=== PATIENT | male | born 1985 | race Caucasian/White ===

== ENCOUNTER 2023-02-03 09:30 | Emergency (ER) | payer BC, SELFPAY ==
[2023-02-03 09:37] VITALS: BP 124/68; PULSE 74; RESP 18; TEMP 36.5; O2SAT 100
--- NOTE | 2023-02-03 10:28 | ED.GENADULT ---
HPI - General Adult General Chief complaint: Ear Stated complaint: Rt Ear Irritation Time Seen by Provider: 02/03/23 10:20 Source: patient Mode of arrival: ambulatory Limitations: no limitations History of Present Illness HPI narrative: 37-year-old male presented for complaint of sore in the right nostril for about 10 days, with yellow/green drainage. States the sore is in the inside of the right nostril tip. Denies epistaxis. Also reports right ear pain worsening over the past 4 days. He endorses chronic tinnitus but for about 4-5 days the ringing is worse. Not taking anything for symptoms. Denies dizziness, n/v/d/f/c. Related Data Allergies Allergy/AdvReac Type Severity Reaction Status Date / Time sulfamethizole AdvReac Mild Rash Verified 02/03/23 10:22 sulfamethoxazole AdvReac Mild Rash Verified 02/03/23 10:22 trimethoprim AdvReac Mild Rash Verified 02/03/23 10:22 Review of Systems Review of Systems: CONSTITUTIONAL: Denies malaise, chills, or fever. EYES: Denies visual changes, redness, or discharge. ENT: Denies rhinorrhea, congestion, sinus pain, and sore throat. Reports ear pain, nose sore CARDIOVASCULAR: Denies chest pain, palpitations, or edema. RESPIRATORY: Denies cough or dyspnea. GASTROINTESTINAL: Denies abdominal pain, nausea, vomiting, diarrhea SKIN: Denies rash or itching. MUSCULOSKELETAL: Denies myalgia. NEUROLOGIC: Denies headache. All systems reviewed & are unremarkable except as noted in HPI and below PMFSH Past Medical History Medical History (Updated 02/03/23 @ 10:33 by Molly Correia APRN) Elevated cholesterol Family History Family History Mother Multiple sclerosis Grandparent Heart disease Other Diabetes mellitus Hypertension Social History Social History Smoking status: Never smoker Tobacco type: smokeless tobacco Smokeless tobacco user: chewing tobacco Alcohol intake: current Alcohol use details: Very rare Substance use: current Substance use type: marijuana Living arrangements: with family Occupation/Education: occupation 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 There is no relevant family history pertinent to the presenting complaint Exam Narrative: GENERAL: Well-appearing, well-nourished, and in no acute distress. HEAD: Normocephalic EYES: PERRLA, conjunctivae clear ENT: Right distal Nare with dried yellow/serous crust, tender. Mucous membranes moist. TMs pearly miller with dull light reflex bilaterally, right TM with minimal effusion; no tragal tenderness. Oropharynx not erythematous without lesions. NECK: Supple. No lymphadenopathy CHEST: Clear to auscultation, breath sounds equal. No wheezing, rhonchi, rales, or stridor. No respiratory distress, speaks in full sentences. HEART: Regular rate and rhythm. No murmur heard. SKIN: Warm, dry, no rash. NEURO: Alert and oriented x3. PSYCH: Normal mood and affect Course Course Emergency Course: Patient is aware of diagnosis, understands and agrees to treatment plan. Anticipatory guidance given. Patient agrees to follow-up as directed and is aware of reasons to seek care at the emergency department. Portions of this record may have been created with voice recognition software Level of Care: Express Care Visit Vital Signs Vital signs: Vital Signs Temperature 97.7 F 02/03/23 09:37 Pulse Rate 74 02/03/23 09:37 Respiratory Rate 18 02/03/23 09:37 Blood Pressure 124/68 02/03/23 09:37 Pulse Oximetry 100 02/03/23 09:37 Oxygen Delivery Room Air 02/03/23 09:37 Temperature 97.7 F 02/03/23 09:37 Pulse Rate 74 02/03/23 09:37 Respiratory Rate 18 02/03/23 09:37 Blood Pressure 124/68 02/03/23 09:37 P
== END 2023-02-03 10:32 | disposition home or self-care (01) ==
PROVIDERS: Emergency Provider Nurse Practitioner Family; PCP Nurse Practitioner Family
DX: H92.01 Otalgia, right ear (principal); L73.9 Follicular disorder, unspecified; F12.90 Cannabis use, unspecified, uncomplicated; E78.00 Pure hypercholesterolemia, unspecified; F17.220 Nicotine dependence, chewing tobacco, uncomplicated
CPT/HCPCS: 99213; G0463

== ENCOUNTER 2023-06-28 08:24 | Emergency (ER) | payer BC, SELFPAY ==
[2023-06-28 08:32] VITALS: BP 123/65; PULSE 76; RESP 18; TEMP 37.1; O2SAT 98
--- NOTE | 2023-06-28 08:44 | ED.URI ---
HPI - URI/Sore Throat General Chief Complaint: Upper Respiratory Infection Stated Complaint: Congestion,Nausea,Body Aches,Sore Throat Time Seen by Provider: 06/28/23 08:37 Source: patient and RN notes reviewed Mode of arrival: ambulatory Limitations: no limitations History of Present Illness HPI Narrative: Patient presents today complaining of 3 day history of sore throat, congestion, headache, body aches, fever up to 101.1, and mild cough. Currently rates his pain 4/10 and has been taking DayQuil with mild relief. 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 Related Data Home Medications Medication Instructions Recorded Confirmed testosterone 50 mg/mL 50 mg IM WEEKLY 02/03/23 02/03/23 intramuscular solution Allergies Allergy/AdvReac Type Severity Reaction Status Date / Time sulfamethizole AdvReac Mild Rash Verified 02/03/23 10:22 sulfamethoxazole AdvReac Mild Rash Verified 02/03/23 10:22 trimethoprim AdvReac Mild Rash Verified 02/03/23 10:22 Review of Systems Review of Systems: CONSTITUTIONAL: + body aches, fever EYES: Denies visual changes, redness, or discharge. ENT: Denies rhinorrhea, or otalgia.+ sore throat, congestion CARDIOVASCULAR: Denies chest pain, palpitations, or edema. RESPIRATORY: + cough GASTROINTESTINAL: Denies abdominal pain, nausea, vomiting, or diarrhea. GENITOURINARY: Denies dysuria or hematuria. SKIN: Denies rash, itching, or wounds. MUSCULOSKELETAL: Denies back pain, joint pain, or myalgia. NEUROLOGIC: Denies numbness, tingling, or weakness.+ headache PSYCH: Denies depression or anxiety. 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 Please see nursing chart for further information. There is no relevant family history pertinent to the presenting complaint Exam Narrative: GENERAL: Mildly ill-appearing, well-nourished, and in no acute distress. HEAD: Normocephalic, atraumatic. EYES: EOMI. No redness or drainage. Conjunctivae normal. ENT: Mucous membranes pink and moist. Nares congested. No rhinorrhea. TMs normal bilaterally. Throat mildly erythematous without edema or exudate. Uvula midline. NECK: Normal AROM. Supple. No lymphadenopathy. CHEST: No respiratory distress. Clear to auscultation. HEART: Regular rate and rhythm. No murmur appreciated. EXTREMITIES: Normal range of motion. No edema. SKIN: Warm, dry, no rash. Capillary refill normal. Normal skin turgor. NEURO: No focal deficits. Alert and oriented x3. Gait steady. PSYCH: Normal affect. No signs of depression or anxiety. Course Course Level of Care: Express Care Visit Vital Signs Vital signs: Vital Signs Oxygen Delivery Room Air 06/28/23 08:30 Temperature 98.7 F 06/28/23 08:32 Pulse Rate 76 06/28/23 08:32 Respiratory Rate 18 06/28/23 08:32 Blood Pressure 123/65 06/28/23 08:32 Pulse Oximetry 98 06/28/23 08:32 Oxygen Delivery Room Air 06/28/23 08:32 Reviewed MDM - URI/Sore Throat MDM Narrative Medical decision making narrative: Rapid strep negative.
== END 2023-06-28 08:53 | disposition home or self-care (01) ==
PROVIDERS: Emergency Provider Nurse Practitioner; PCP Nurse Practitioner Family
DX: J06.9 Acute upper respiratory infection, unspecified (principal); F17.220 Nicotine dependence, chewing tobacco, uncomplicated; F12.90 Cannabis use, unspecified, uncomplicated; E78.00 Pure hypercholesterolemia, unspecified
CPT/HCPCS: 87081; 87880; 99213; G0463

== ENCOUNTER 2024-03-03 09:26 | Emergency (ER) | payer BC, SELFPAY ==
--- NOTE | 2024-03-03 09:33 | ED.URI ---
HPI - URI/Sore Throat General Chief Complaint: Upper Respiratory Infection Stated Complaint: sinus infection Source: patient, RN notes reviewed and old records reviewed Mode of arrival: ambulatory Limitations: no limitations History of Present Illness HPI Narrative: patient presents with complaints of right-sided sinus pain and pressure that has been present for 7 or 8 days. He reports associated headache. He has been taking Mucinex and other Over the counter medications with minimal relief. he denies fever. He does report some associated fatigue and headache. He denies injury or trauma. Heart rate of 55 noted, patient reports this is normal for him. He voices no other concerns or complaints at this time Related Data Home Medications Medication Instructions Recorded Confirmed testosterone 03/03/24 Allergies Allergy/AdvReac Type Severity Reaction Status Date / Time sulfamethoxazole Allergy Mild Rash Verified 03/03/24 09:39 trimethoprim Allergy Mild Rash Verified 03/03/24 09:39 sulfamethizole AdvReac Mild Rash Verified 01/28/24 11:00 Review of Systems Review of Systems: All systems reviewed & are unremarkable except as noted in HPI and below Constitutional: Constitutional: Reports no additional constitutional complaints and Reports fatigue ENT: Reports system reviewed and no additional complaints, except as documented, Reports nasal congestion, Reports nasal discharge, Reports sinus pain and Reports sinus pressure Cardiovascular: Cardiovascular: Reports no additional cardiovascular complaints Respiratory: Respiratory: Reports no additional respiratory complaints Gastrointestinal: Gastrointestinal: Reports no additional gastrointestinal complaints [facility] Past Medical History Medical History Elevated cholesterol Lateral epicondylitis Lateral epicondylitis, right elbow Family History Family History Mother Multiple sclerosis Grandparent Heart disease Other Diabetes mellitus Hypertension Social History Social History Smoking status: Never smoker Tobacco type: smokeless tobacco Smokeless tobacco user: chewing tobacco Alcohol intake: current Alcohol use details: Very rare Substance use: current Substance use type: marijuana Living arrangements: with family Occupation/Education: occupation 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 There is no relevant family history pertinent to the patient complaint. Exam Const: General: cooperative, no acute distress, alert and awake Orientation/consciousness: oriented to person, oriented to place and oriented to time HENMT: Head: normal to inspection Ears: TM normal on the left and TM abnormal with fluid behind the TM on the right Face/Nose/Sinus: Normal external nose present and Abnormal mucous membranes and turbinates present erythematous bilateral Face and sinus: sinus tenderness frontal (right) and maxillary (right) Throat: posterior oropharynx abnormal erythema and postnasal drainage Neck: Lymphatic: no lymphadenopathy noted Resp: Effort & Inspection: normal respiratory effort and able to speak in complete sentences Auscultation: clear to auscultation bilaterally, no crackles, no rales, no rhonchi and no wheezes Cardio: Palpation: normal PMI Rate: regular rate Rhythm: regular rhythm Heart sounds: S1 normal heart sound present and S2 normal heart sound present Neuro: General: oriented to person, oriented to place and oriented to time Cranial nerves: Yes CN's II-XII intact bilaterally Psych: Appearance: grossly normal Thought process: Normal thought process present Insight: Good insi
[2024-03-03 09:38] VITALS: BP 124/74; PULSE 55; RESP 18; TEMP 36.6; O2SAT 100
[2024-03-03 09:39] VITALS: BP 124/74; PULSE 55; RESP 18; TEMP 36.6; O2SAT 100
== END 2024-03-03 09:50 | disposition home or self-care (01) ==
PROVIDERS: Emergency Provider Nurse Practitioner Family
DX: J01.00 Acute maxillary sinusitis, unspecified (principal); F17.220 Nicotine dependence, chewing tobacco, uncomplicated; E78.00 Pure hypercholesterolemia, unspecified
CPT/HCPCS: 99213; G0463

== ENCOUNTER 2024-04-28 08:00 | Outpatient (RCR) | payer BC, SELFPAY ==
--- NOTE | 2024-02-29 13:51 | OTOPEVAL1 ---
Assessment and note entered by Murali Blackmon, SAEID/Ana, CHT Evaluation Information Assessment Status Evaluation Diagnosis Right lateral epicondylitis Subjective Information Patient is right handed. Reports experiencing symptoms for about 4 months. 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 He has a tennis elbow brace and has been using a massage gun for relief. Assessment OT Clinical Summary Patient referred to OT with dx of right lateral epicondylitis. He presents with pain that limits functional (R) UE use for ADLs and work tasks. Skilled OT indicated for HEP instruction and progression, use of modalities, manual therapy, and therapeutic exercise to facilitate optimal functional use of his right, dominant UE. Plan of Care Interventions Therapeutic Exercise,Manual Therapy,Hot Pack/Cold Pack,Ultrasound,Paraffin OT Services Indicated Yes These treatments will address the objective and functional deficits as defined above. The patient will be advanced safely and appropriately in order for the patient to progress towards his/her prior level of function. Additional exercises will be introduced and as well as a comprehensive home exercise program upon discharge, if needed, ?to ensure carryover of functional gains achieved in the clinic. This treatment plan has been reviewed and agreement upon by the patient.
--- NOTE | 2024-02-29 13:52 | OTOPEVAL1 ---
Assessment and note entered by Murali Blackmon, SAEID/Ana, CHT OT Evaluation Information 02/29/24 Diagnosis Right lateral epicondylitis Subjective Information Patient is right handed. Reports experiencing symptoms for about 4 months. 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 He has a tennis elbow brace and has been using a massage gun for relief. Reported Pain Level Additional Pain Score Comments No pain at rest. 4/10 pain with active ROM. 7/10 pain with gripping dynamometer today. Assessment OT Clinical Summary Patient referred to OT with dx of right lateral epicondylitis. He presents with pain that limits functional (R) UE use for ADLs and work tasks. Skilled OT indicated for HEP instruction and progression, use of modalities, manual therapy, and therapeutic exercise to facilitate optimal functional use of his right, dominant UE. Plan of Care Interventions Therapeutic Exercise,Manual Therapy,Hot Pack/Cold Pack,Ultrasound,Paraffin OT Services Indicated Yes These treatments will address the objective and functional deficits as defined above. The patient will be advanced safely and appropriately in order for the patient to progress towards his/her prior level of function. Additional exercises will be introduced and as well as a comprehensive home exercise program upon discharge, if needed, ?to ensure carryover of functional gains achieved in the clinic. This treatment plan has been reviewed and agreement upon by the patient.
--- NOTE | 2024-02-29 13:53 | OPREHPOC ---
Outpatient Therapy Plan of Care This is a Multidisciplinary Plan of Care that may contain components documented by all disciplines (PT, OT, and ST.) OT Problem 1 OT Problem #1 Knowledge Deficit OT Goal 1 Goal 1. Patient to be independent with instructed materials. Target Visit 4 OT Problem 2 OT Problem #2 Pain OT Goal 1 Goal 1. Patient to report 0/10 pain with light ADLs. 2. 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 Target Visit 4 OT Problem 3 OT Problem #3 Impaired Strength OT Goal 1 Goal 1. Patient to be able to progress to (R) gross wrist strengthening with 4 lb. dumbbell x20 reps without pain. Target Visit 4
--- NOTE | 2024-03-13 09:04 | PCOTNOTE ---
Patient did not show up for scheduled appointment this date. Patient was contact and he stated he did not realize he had an appointment today. Patient was reminded of upcoming appointment on March at 8:00AM. Patient was also given the opportunity to reschedule for tomorrow or this coming week. He stated he would call back.
--- NOTE | 2024-04-08 09:46 | PCOTNOTE ---
Patient called and cancelled re-eval appt today due to having to work.
--- NOTE | 2024-04-28 09:09 | OTOPPROG ---
Assessment and note entered by Murali Blackmon, SAEID/Ana, CHT Evaluation Information Diagnosis Right lateral epicondylitis Subjective Information Patient reports progress since the start of care. 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 He does have instances of no pain. Today he is reporting 3 /10 pain walking in. His HEP includes stretching, strengthening, self massage, and use of heat for the elbow. He continues to wear a tennis elbow brace when working. Reports no paresthesia in the hand/arm. Assessment OT Clinical Summary Patient referred to OT with dx of right lateral epicondylitis. He has only been able to attend 3 sessions due to his work scheduled. OT re- evaluation completed this date. Patient is making progress with reduced pain, however he continues to experience high levels of pain after his work day. He has been unable to progress his strengthening HEP past 10-15 reps. 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 He did not experience increased pain with MMT or user experience developer strength assessments today, which is a big improvement from the initial evaluation. He continues to get relief from treatment - paraffin, manual/IASTM, strengthening, and ice. Continued skilled OT indicated for HEP progression, use of modalities, manual therapy, and therapeutic exercise to facilitate optimal functional use of his right, dominant UE. Plan of Care Interventions Therapeutic Exercise,Manual Therapy,Hot Pack/Cold Pack,Ultrasound,Paraffin OT Services Indicated Yes Treatment Frequency and 1x/week for 4 visits Duration These treatments will address the objective and functional deficits as defined above. The patient will be advanced safely and appropriately in order for the patient to progress towards his/her prior level of function. Additional exercises will be introduced and as well as a comprehensive home exercise program upon discharge, if needed, ?to ensure carryover of functional gains achieved in the clinic. This treatment plan has been reviewed and agreement upon by the patient.
--- NOTE | 2024-04-28 09:09 | OPREHPOC ---
Outpatient Therapy Plan of Care This is a Multidisciplinary Plan of Care that may contain components documented by all disciplines (PT, OT, and ST.) OT Problem 1 OT Problem #1 Knowledge Deficit OT Goal 1 Goal / Goal Update 1. Patient to be independent with instructed materials. ---OT POC Update 04/28/24--- 1. Met Target Visit 4 OT Problem 2 OT Problem #2 Pain OT Goal 1 Goal / Goal Update 1. Patient to report 0/10 pain with light ADLs. 2. Patient to be able to complete (R) Mmi Teacher strengthening without pain. ---OT POC Update 04/28/24--- 1. Inconsistently met, continue to treat pain 2. Not met, continue to treat pain Target Visit 4 OT Problem 3 OT Problem #3 Impaired Strength OT Goal 1 Goal / Goal Update 1. Patient to be able to progress to (R) gross wrist strengthening with 4 lb. dumbbell x20 reps without pain. ---OT POC Update 04/28/24--- 1. Not met, stops at 10 reps Target Visit 4
--- NOTE | 2024-05-05 08:57 | OTOPDC ---
Assessment and note entered by Murali Blackmon, OTR/L, CHT OT D/C Notification 05/05/24 OT Clinical Summary Patient called to report he is going to be in [place] for work for the next 1.5 months and will be unable to attend therapy. He reports he has the HEP and instructions to continue on his own at this time. D/C OT with HEP. Please refer to most recent note, dated 04/28/24, for progress summary. Thank you for this referral. OT Services Indicated No
== END 2024-05-05 09:01 | disposition home or self-care (01) ==
LOC: ANHOT 08:00
PROVIDERS: PCP Nurse Practitioner Family; Visit Provider Family Medicine
DX: M77.11 Lateral epicondylitis, right elbow (principal)
CPT/HCPCS: 97018; 97110; 97140; 97165

== ENCOUNTER 2024-11-17 09:33 | Emergency (ER) | payer BC, SELFPAY ==
[2024-11-17 09:41] VITALS: BP 117/77; PULSE 62; RESP 16; TEMP 36.4; O2SAT 100
--- NOTE | 2024-11-17 10:08 | ED_ITS ---
HPI - URI/Sore Throat General Chief Complaint: Upper Respiratory Infection Stated Complaint: sinus infection Time Seen by Provider: 11/17/24 10:08 Source: patient Mode of arrival: ambulatory Limitations: no limitations History of Present Illness HPI Narrative: 39-year-old male presents with complaint of sinus congestion, pressure for the past 2 weeks. Taking [id number] Mucinex to treat symptoms. Reports postnasal drainage, intermittent sore throat. Sinus pressure and congestion worse over the past 2-3 days. All systems reviewed and negative except as noted above. Related Data Home Medications ?Medication ?Instructions ?Recorded ?Confirmed ?Last Taken ?Type testosterone 03/03/24 03/18/24 Unknown History Allergies Allergy/AdvReac Type Severity Reaction Status Date / Time sulfamethoxazole Allergy Mild Rash Verified 11/17/24 09:39 trimethoprim Allergy Mild Rash Verified 11/17/24 09:39 sulfamethizole AdvReac Mild Rash Verified 11/17/24 09:39 Review of Systems Review of Systems: CONSTITUTIONAL: Denies fever, chills, or sweats. reports fatigue EYES: Denies visual changes, redness, or discharge. ENT: Reports rhinorrhea, congestion, sinus pressure, intermittent sore throat, postnasal drainage. Denies otalgia. CARDIOVASCULAR: Denies chest pain, palpitations, or edema. RESPIRATORY: Denies cough or dyspnea. GASTROINTESTINAL: Denies abdominal pain, nausea, vomiting, or diarrhea. GENITOURINARY: Denies dysuria or hematuria. SKIN: Denies rash or itching. MUSCULOSKELETAL: Denies back pain, joint pain, or myalgia. NEUROLOGIC: Denies headache, numbness, or weakness. PSYCHIATRIC: Denies anxiety or depression. All other systems reviewed are negative, except as documented in HPI. [facility] Past Medical History Medical History Elevated cholesterol Lateral epicondylitis Lateral epicondylitis, right elbow Surgical History Surgical History No history of previous surgery Family History Family History Mother Multiple sclerosis Grandparent Heart disease Other Diabetes mellitus Hypertension Social History Social History Smoking status: Never smoker Tobacco type: smokeless tobacco Smokeless tobacco user: chewing tobacco Alcohol intake: current Alcohol use details: Very rare Substance use: current Substance use type: marijuana Living arrangements: with family Occupation/Education: occupation 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 There is no relevant family history pertinent to the presenting complaint. Exam Narrative: GENERAL: This is a well-nourished, well-developed patient, ill-appearing but no acute distress HEAD: normocephalic, atraumatic. EYES: PERRL. Sclera clear/white. Vision is grossly intact. EARS: External ears normal, auditory canals clear and without drainage, TMs normal without perforation. Hearing grossly intact. NOSE: External nose normal with purulent nasal drainage, erythema and swelling to bilateral nares. Bilateral maxillary and frontal sinus tenderness on palpation bilaterally THROAT: Mucous membranes moist, mild erythema with postnasal drainage. No swelling or exudates NECK: Neck supple, non-tender without lymphadenopathy, masses or thyromegaly. CARDIOVASCULAR: Regular rate and rhythm without murmurs, gallops, or rubs. RESPIRATORY: Clear to auscultation. Breath sounds equal bilaterally. No wheezes, rales, or rhonchi. SKIN: warm, Dry, intact with no suspicious lesions or rash, good texture and turgor. NEURO: awake, alert, and oriented to person, place and time. There were no obvious focal neurologic abnormalities. EXTREMITIES: No joint tenderness, effusion, or edema noted. Course Course Level of Care: Express Care Visit Vital Signs Vital signs: Vital Signs Temperature 36.4 C 11/17/24 09:41 Pulse Rate 62 11/17/24 09:41 Respiratory Rate 16 11/17/24 09:41 Blood Pressure 117/77 11/17/24 09:41 Pulse Oximetry 100 11/17/24 09:41 Oxygen Delivery Room Air 11/17/24 09:41 Temperature 36.4 C 11/17/24 09:41 Pulse Rate 62 11/17/24 09:41 Respiratory Rate 16 11/17/24 09:41 Blood Pressure 117/77 11/17/24 09:41 Pulse Oximetry 100 11/17/24 09:41 Oxygen Delivery Room Air 11/17/24 09:41 reviewed MDM - URI/Sore Throat MDM Narrative Medical decision making narrative: will treat patient with antibiotic for bacterial sinusitis due to duration of symptoms and exam findings. Patient is alert, nontoxic. Please be advised this is a medical document. It is intended for [id number] communication. It is written in medical language and may contain unfamiliar abbreviations or verbiage. Medical documents are intended to carry relevant information, facts as evident, and the clinical opinion of the practitioner at the time of the encounter. This report may have been done utilizing a voice recognition system. Attempts have been made to correct errors. However, there may be uncorrected grammatical, spelling, and recognition errors present. The file time of this note does not necessarily represent the time of service. Differential Diagnosis Differential diagnosis: Likely upper respiratory infection, sinusitis and viral infection Discharge Plan Discharge Clinical Impression: Acute bacterial sinusitis Patient Disposition: Home Condition: Stable Instructions: Antibiotic Form, Sinusitis (ED) Additional Instructions: Take medications as prescribed. Take Tylenol or ibuprofen every 6-8 hours as needed for pain. Drink at least 64 oz of water a day. Follow-up with your doctor if symptoms are not improving. Patient Language: Montserratian Prescriptions: New prednisone 20 mg tablet 40 mg PO DAILY 5 Days Qty: 10 0RF fluticasone propionate [Flonase Allergy Relief] 50 mcg/actuation spray,suspension 1 spray intranasal BID Qty: 16 0RF Rx Instructions: administer into each nostril loratadine [Claritin] 10 mg tablet 10 mg PO DAILY Qty: 30 0RF amoxicillin-pot clavulanate 875-125 mg tablet 1 tablet PO Q12H 7 Days Qty: 14 0RF No Action testosterone Follow-up/Referrals: PHYSICIAN,PARACHUTE TAPER [Primary Care Provider] - Time of Disposition: 10:12
--- OUTSIDE RECORDS SUMMARY | 2024-11-17 10:24 | XMS_ITS | Clinical Summary ---
Author Organization [facility] Address [address] [place] [id number] Care Team Providers Care Warehouse Administrative Assistant Name Role Phone None, Provider MD Primary Care Provider Unavaila ble Allergies Active Allergy Reactions Criticality Noted Date Comments Sulfa Antibiotics Unknown 02/25/2012 Medications methylPREDNISol one, NINI, (MEDROL DOSEPAK) 4 MG tabletIndicatio ns:Acute non-recurrent maxillary sinusitis 6 TABLETS ON DAY ONE, 5 TABLETS DAY TWO, 4 TABLETS DAY THREE, 3 TABLETS DAY FOUR, 2 TABLETS DAY FIVE, AND 1 TABLET DAY SIX 1 each 07/26/2022 Active Active Problems No known active problems Immunizations Immunization Administration Dates Next Due MMR (MMRII) 11/04/1991 Td (TDVAX) 11/07/1999 Tdap (Generic) 01/23/2014 Social History Tobacco Use Types Packs/Day Years Used Date Smoking Tobacco: Never Smokeless Tobacco: Never Tobacco Cessation:Counseling Given: Not Answered Sex and Gender Information Value Date Recorded Sex Assigned at Not on file Legal Sex Male 9:05 PM CDT Gender Identity Not on file Sexual Orientation Not on file Last Filed Vital Signs Vital Sign Reading Time Taken Comments Blood Pressure 113/69 07/26/2022 11:29 AM NET SOFTWARE DEVELOPER Pulse 58 07/26/2022 11:29 AM NET SOFTWARE DEVELOPER Temperature 36.8 C (98.2 F) 07/26/2022 11:29 AM NET SOFTWARE DEVELOPER Respiratory Rate 18 07/26/2022 11:2 9 AM NET SOFTWARE DEVELOPER Oxygen Saturation 99% 07/26/2022 11: 29 AM NET SOFTWARE DEVELOPER Inhaled Oxygen Concentration - - Weight 132.2 kg (291 lb 6.4 oz) 023 11:29 AM NET SOFTWARE DEVELOPER Height 195.6 cm (6' 5 ) 07/26/2022 11:2 9 AM NET SOFTWARE DEVELOPER Body Mass Index 34.55 07/26/2022 11:29 AM NET SOFTWARE DEVELOPER Plan of Treatment Health Maintenance Due Date Last Done Comments Annual Physical 1989 Hepatitis C 02/09/2004 Hepatitis B Vaccines (1 of 3 - 19+ 3-dose series) 2005 DTaP, Tdap and Td Vaccines ( 3 - Td or Tdap) 01/24/2024 01/23/2014, 11/07/1999 COVID-19 Vaccine ( - 2023-2 5 season) 2024 HPV Vaccines Aged Out No longer eligi ble based on patient's age to complete this topic Meningococcal B Vaccine Aged Out No l onger eligible based on patient's age to complete this topic Meningococcal Vaccine Aged Out No zoey beka eligible based on patient's age to complete this topic Pneumococcal Vaccine: Pediatrics (0 to 5 Years) and At-Risk Patients (6 to 49 Years) Aged Out No longer eligible b ased on patient's age to complete this topic RSV Immunizations Under 20 Months Aged Out No longer eligible b ased on patient's age to complete this topic Insurance Care Teams Warehouse Administrative Assistant Relationship Specialty Start Date End Date None, Provider, MD PCP - General UNKNOWN PHYSICIAN SPECIALTY 07/26/22
== END 2024-11-17 10:15 | disposition home or self-care (01) ==
PROVIDERS: Emergency Provider Nurse Practitioner Family
DX: J01.90 Acute sinusitis, unspecified (principal); F17.220 Nicotine dependence, chewing tobacco, uncomplicated; F12.90 Cannabis use, unspecified, uncomplicated; E78.00 Pure hypercholesterolemia, unspecified
CPT/HCPCS: 99213; G0463

== ENCOUNTER 2025-05-30 11:29 | Emergency (ER) | payer BC, SELFPAY ==
--- OUTSIDE RECORDS SUMMARY | 2025-05-30 11:36 | XMS_ITS | Clinical Summary ---
Author Organization [facility] Address [address] [place] [id number] Care Team Providers Care Negative Developer Name Role Phone None, Provider MD Primary [...] Comments Blood Pressure 113/69 07/26/2022 11:29 AM SMALL CRAFT OPERATOR Pulse 58 07/26/2022 11:29 AM SMALL CRAFT OPERATOR Temperature 36.8 C (98.2 F) 07/26/2022 11:29 AM SMALL CRAFT OPERATOR Respiratory Rate 18 07/26/2022 11:2 9 AM SMALL CRAFT OPERATOR Oxygen Saturation 99% 07/26/2022 11: 29 AM SMALL CRAFT OPERATOR Inhaled Oxygen Concentration - - Weight 132.2 kg (291 lb 6.4 oz) 023 11:29 AM SMALL CRAFT OPERATOR Height 195.6 cm (6' 5) 07/26/2022 11:2 9 AM SMALL CRAFT OPERATOR Body Mass Index 34.55 07/26/2022 11:29 AM SMALL CRAFT OPERATOR Plan of Treatment Health Maintenance Due Date Last Done Comments Annual Physical 1989 Hepatitis C 02/09/2004 Hepatitis B Vaccines (1 of 3 - 19+ 3-dose series) 2005 HPV Vaccines (1 - 3-dose SCD M series) 2013 DTaP, Tdap and Td Vaccines ( 3 - Td or Tdap) 01/24/2024 01/23/2014, 11/07/1999 COVID-19 Vaccine (1 - 2024-2 6 season) 2025 Influenza Adult (#1) 2025 Hepatitis A Vaccines Aged Out No long er eligible based on patient's age to complete [...] to complete this topic Insurance Care Teams Negative Developer Relationship Specialty Start Date End Date None, Provider, MD PCP - General UNKNOWN PHYSICIAN SPECIALTY 07/26/22
[2025-05-30 11:39] VITALS: BP 110/66; PULSE 64; RESP 18; TEMP 36.5; O2SAT 99
--- NOTE | 2025-05-30 11:54 | ED_ITS ---
HPI - URI/Sore Throat General Chief Complaint: Upper Respiratory Infection Stated Complaint: sinus/URI Time Seen by Provider: 05/30/25 11:46 Source: patient and RN notes reviewed Mode of arrival: ambulatory Limitations: no limitations History of Present Illness HPI Narrative: 40-year-old male patient presents today complaining of a 2-2.5 week history of cough, postnasal drip, nasal congestion and sinus pressure, headache, sore throat, and shortness of breath. Denies fever. He has tried Tylenol, ibuprofen, DayQuil, Mucinex, and nasal spray with mild relief. Reports asthma as a child but none as an adult. Currently rates his pain 09/29. Related Data Allergies Allergy/AdvReac Type Severity Reaction Status Date / Time sulfamethizole Allergy Mild Rash Verified 05/30/25 11:40 sulfamethoxazole Allergy Mild Rash Verified 05/30/25 11:40 trimethoprim Allergy Mild Rash Verified 05/30/25 11:40 PMFSH Past Medical History Medical History Lateral epicondylitis, right elbow Lateral epicondylitis Elevated cholesterol Surgical History Surgical History No history of previous surgery Family History Family History Mother Multiple sclerosis Grandparent Heart disease Other Diabetes mellitus Hypertension Social History Social History Social History: 02/04/25 somewhat confident with medical forms Tobacco type: smokeless tobacco Smokeless tobacco user: chewing tobacco Alcohol intake: current Alcohol use details: Very rare Substance use: current Substance use type: marijuana Do You Feel Safe in your Home?: Yes Lack of Transportation: No Lack of Food: Never True Current Housing: I Have Housing Concerned About Future Housing: No Difficulty Paying Gas/Electric Bills: No Difficulty Paying for Meds: No Currently Unemployed: No Education: Associate Degree Difficulty w/ Childcare or Family Care: No Living arrangements: with family Occupation/Education: occupation 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 Please see nursing chart for further information. There is no relevant family history pertinent to the presenting complaint Exam Narrative: GENERAL: Mildly [id number], well-nourished, and in no acute distress. HEAD: Normocephalic, atraumatic. EYES: EOMI. No redness or drainage. Conjunctivae normal. ENT: Mucous membranes pink and moist. Nares congested. Bilateral maxillary sinus tenderness. Bilateral erythematous and edematous nasal turbinates. No rhinorrhea. TMs normal bilaterally. Throat normal. Uvula midline. NECK: Normal AROM. Supple. Bilateral anterior cervical chain lymphadenopathy. CHEST: No respiratory distress. Clear to auscultation. HEART: Regular rate and rhythm. No murmur appreciated. EXTREMITIES: Normal range of motion. No edema. SKIN: Warm, dry, no rash. Capillary refill normal. Normal skin turgor. NEURO: No focal deficits. Alert and oriented x3. Gait steady. PSYCH: Normal affect. No signs of depression or anxiety. Course Course Level of Care: Express Care Visit Vital Signs Vital signs: Vital Signs Temperature 97.7 F 05/30/25 11:39 Pulse Rate 64 05/30/25 11:39 Respiratory Rate 18 05/30/25 11:39 Blood Pressure 110/66 05/30/25 11:39 Pulse Oximetry 99 05/30/25 11:39 Oxygen Delivery Room Air 05/30/25 11:39 Temperature 97.7 F 05/30/25 11:39 Pulse Rate 64 05/30/25 11:39 Respiratory Rate 18 05/30/25 11:39 Blood Pressure 110/66 05/30/25 11:39 Pulse Oximetry 99 05/30/25 11:39 Oxygen Delivery Room Air 05/30/25 11:39 Reviewed MDM - URI/Sore Throat MDM Narrative Medical decision making narrative: 40-year-old male patient presents today complaining of a 2-2.5 week history of cough, postnasal drip, nasal congestion and sinus pressure, headache, sore throat, and shortness of breath. Denies fever. He has tried Tylenol, ibuprofen, DayQuil, Mucinex, and nasal spray with mild relief. Reports asthma as a child but none as an adult. Currently rates his pain 3/10. Upon exam, patient is mildly ill appearing with nasal congestion, bilateral maxillary sinus tenderness, erythematous and edematous nasal turbinates. He will be treated with Augmentin and prednisone for bacterial sinusitis and bronchitis. Denies need for albuterol inhaler. Vital signs stable. Patient agrees with plan. Anticipatory guidance given. Differential Diagnosis Differential diagnosis: Likely upper respiratory infection, otitis media, sinusitis, viral infection and bronchitis Critical Care Time Critical Care Time Critical Care Time: No Discharge Plan Discharge Clinical Impression: Bronchitis Sinusitis Qualifiers: Sinusitis location: maxillary Chronicity: acute Recurrence: non-recurrent Qualified Code(s): J01.00 - Acute maxillary sinusitis, unspecified Patient Disposition: Home Condition: Stable Instructions: Antibiotic Form, Sinusitis (ED) Additional Instructions: Please take all medications as prescribed. Continue OTC medication as needed for symptoms. Follow-up with your PCP in 3 days if symptoms are not improving. Patient Language: Amharic Prescriptions: New prednisone 50 mg tablet 50 mg PO DAILY 5 Days Qty: 5 0RF amoxicillin-pot clavulanate 875-125 mg tablet 1 tablet PO Q12H 7 Days Qty: 14 0RF Follow-up/Referrals: Maria De Jesus Forrester APRN [Primary Care Provider, Family Practice] Time of Disposition: 11:54
== END 2025-05-30 11:57 | disposition home or self-care (01) ==
PROVIDERS: Emergency Provider Nurse Practitioner; PCP Nurse Practitioner Family
DX: J40 Bronchitis, not specified as acute or chronic (principal); J01.00 Acute maxillary sinusitis, unspecified; F17.220 Nicotine dependence, chewing tobacco, uncomplicated; F12.90 Cannabis use, unspecified, uncomplicated; E78.00 Pure hypercholesterolemia, unspecified
CPT/HCPCS: 99213; G0463